=== PATIENT | female | born 1960 | race Caucasian/White ===

== ENCOUNTER 2023-12-22 14:56 | Emergency (ER) | payer MEDICAID, SELFPAY ==
[2023-12-22 15:21] VITALS: BP 141/69; PULSE 70; RESP 18; TEMP 36.6; O2SAT 96
[2023-12-22 15:22] VITALS: BMI 44.1
--- NOTE | 2023-12-22 15:26 | EKG_ITS ---
[facility] Test Date: 2023-12-22 Pat Name: IHSAN NATARAJAN Department: Room: - Gender: Female Talent Acquisition Director: : 1960 Requested By: José Miguel Yuen (JULIO) Order Number: [id number] Reading MD: José Miguel Yuen (CLIENT DEVELOPMENT MANAGER) Measurements Intervals [place] Rate: 58 P: 27 NM: 187 QRS: -36 QRSD: 82 T: 24 QT: 423 QTc: 418 Interpretive Statements SINUS BRADYCARDIA MARKED LEFT AXIS DEVIATION [QRS AXIS < -30] LOW QRS VOLTAGE IN PRECORDIAL LEADS [QRS DEFLECTION < 1.0 mV IN CHEST LEADS] VOLTAGE CRITERIA FOR LVH [MEETS CRITERIA IN ONE OF: R(aVL), S(V1), R(V5), R(V5/V6)+S(V1)] POSSIBLE ANTERIOR MYOCARDIAL INFARCTION , PROBABLY OLD [30 ms Q WAVE IN V3/V4, OR R < 0.2 mV IN V4] Compared to ECG 12/14/2022 06:11:24 Low QRS voltage now present Myocardial infarct finding now present Sinus rhythm no longer present /store/S0/[id number]
--- NOTE | 2023-12-22 15:26 | XR_ITS ---
Examination: CT brain head without contrast. 2-D sagittal coronal reconstructions Date and time of exam:December 22, 2023 1556 hrs. Comparison December 14, 2022 Indications: Onset today focal neurologic deficit, right-sided body weakness, dizziness CTDI: vol (mGy):49.9 DLP: (mGycm):981 Technique: Multiple CT axial sections of the brain have been obtained, 5 mm slice thickness. Contrast has not been administered. 2-D sagittal, coronal reconstructions have been obtained Low dose protocols were performed. One or more of the following dose reduction techniques were used; automated exposure control, adjustment of the mA and/or KV according to patient size, use of iterative reconstruction technique. Findings: No significant ventricular enlargement. Intra-axial or extra-axial hemorrhage density is not seen. No mass effect or midline shift Basal cisterns are not remarkable. Fourth ventricle is midline. Cranial vault intact. Significant right maxillary sinusitis Impression: Negative for acute hemorrhage, mass effect or midline shift As clinically warranted, brain MRI follow-up would best assess for acute ischemic change
--- NOTE | 2023-12-22 15:26 | PD.EDRME ---
Rapid Medical Screening Exam RME Arrival date/time: 12/22/23 14:56 61-year-old female presents to the emergency department complains of dizziness patient reports having recent outpatient MRI Chief Complaint: General Adult/Misc Complain Vital signs: Vital Signs Temperature 97.8 F 12/22/23 15:21 Pulse Rate 70 12/22/23 15:21 Respiratory Rate 18 12/22/23 15:21 Blood Pressure 141/69 H 12/22/23 15:21 Pulse Oximetry (%) 96 12/22/23 15:21 Oxygen Delivery Method Room Air 12/22/23 15:21
[2023-12-22 16:13] LABS: Basophils # (Auto) 0.1 Thou/mm3 (0.0-0.2); Basophils % (Auto) 2 % (0-2.5); Eosinophils # (Auto) 0.2 Thou/mm3 (0.0-0.5); Eosinophils % (Auto) 3 % (0-10); Hematocrit 40.1 % (36.0-46.0); Hemoglobin 13.5 g/dL (12.0-16.0); Immature Granulocytes % (Auto) 0 % (0-0); Immature Granulocytes Auto 0.02 Thou/mm3 (0.00-0.00); Lymphocytes # (Auto) 1.8 Thou/mm3 (1.0-4.8); Lymphocytes % (Auto) 36 % (10-50); Mean Corpuscular HGB Conc 33.7 g/dl (31.0-37.0); Mean Corpuscular Hemoglobin 29.9 pg (25.0-35.0); Mean Corpuscular Volume 89 fL (80-100); Monocytes # (Auto) 0.3 Thou/mm3 (0.0-0.8); Monocytes % (Auto) 7 % (0-12); Neutrophils # (Auto) 2.6 Thou/mm3 (1.8-7.7); Neutrophils % (Auto) 52 % (37-80); Nucleated Red Blood Cell % 0 /100 WBC (0); Platelet Count 234 Thou/mm3 (140-440); RDW Standard Deviation 39.7 fL (36.4-46.3); Red Blood Count 4.51 Miln/mm3 (4.00-5.20); White Blood Count 4.9 Thou/mm3 (3.6-11.0)
[2023-12-22 16:26] LABS: B-Type Natriuretic Peptide < 20 pg/mL (0-100)
[2023-12-22 16:27] LABS: Alanine Aminotransferase 71 U/L (10-49); Albumin, Serum 4.5 gm/dL (3.4-4.8); Albumin/Globulin Ratio 1.7 (1.2-2.2); Alkaline Phosphatase 113 U/L (46-116); Anion Gap 4 (7-16); Aspartate Amino Transferase 52 U/L (0-34); BUN/Creatinine Ratio 19 Ratio (12-20); Bilirubin,Total 0.4 mg/dL (0.3-1.2); Blood Urea Nitrogen 13 mg/dL (9-23); Calcium 9.9 mg/dL (8.3-10.6); Calcium (Corrected) 9.9 mg/dL (8.5-10.1); Carbon Dioxide 28.1 mMol/L (20.0-31.0); Chloride 106 mMol/L (98-107); Creatinine (Component) 0.7 mg/dL (0.6-1.3); Estimated Creatinine Clearance 108.2 mL/min (>60); Globulin 2.7 gm/dL (2.3-3.5); Glucose 116 mg/dL (74-106); Osmolality,Calculated 276 (275-295); Potassium 3.7 mMol/L (3.4-5.1); Sodium 138 mMol/L (136-145); Total Protein 7.2 gm/dL (5.7-8.2); Troponin I < 0.002 ng/mL (0.0-0.045); eGFR > 60 See Note
[2023-12-22 18:34] VITALS: BP 144/80; PULSE 56; RESP 17; TEMP 36.7; O2SAT 97
[2023-12-22 18:45] LABS: Collection Type, Urine Clean Catch; RBC,Urine 0 /hpf (0-3)
[2023-12-22 18:57] LABS: Amphetamine/Methamp Scrn,U Negative (Negative); Barbiturate Screen,Urine Negative (Negative); Benzodiazepines Screen,Urine Negative (Negative); Benzoylecgonine Screen, Ur Negative (Negative); Fentanyl Screen,Urine Negative (Negative); Opiate Screen,Urine Negative (Negative); THC Screen,Urine Negative (Negative)
[2023-12-22 18:58] LABS: Bacteria,Urine 1+; Bilirubin,Urine Negative (Negative); Blood,Urine Negative (Negative); Clarity,Urine Turbid (Clear/Hazy); Color,Urine Yellow (Lt Yel-Yel); Glucose, Urine Negative (Negative); Ketones,Urine Negative (Negative); Leukocyte Esterase,Urine Positive (Negative); Nitrite,Urine Negative (Negative); Protein,Urine Trace (Neg - Trace); Specific Gravity,Urine 1.026 (1.001-1.035); Squamous Epithelial Cell,Urine 2 /hpf (0-5); WBC,Urine 2 /hpf (0-5)
[2023-12-22 19:25] VITALS: BP 146/78; PULSE 65; RESP 16; TEMP 36.6; O2SAT 100
--- NOTE | 2023-12-22 19:38 | EDNOTE_ITS ---
ED General RME/HPI General Chief complaint: General Adult/Misc Complain Stated complaint: RIGHT SIDED WEAKNESS Time Seen by Provider: 12/22/23 18:39 Arrival date/time: 12/22/23 14:56 This is a 63-year-old female that comes in with complaints of dizziness that started prior to arrival. Patient states that recently she has been having some balance issues to her right hip and right knee. Patient being worked up by her primary doctor for neuropathy. Patient states that she has had a little bit of a runny nose and a sore throat recently but no fever no chills. Patient reports a history of high blood pressure, connective tissue disease, Sjogren's disease. Patient has a follow-up appointment with her primary provider next week. Patient denies any focal deficits, slurred speech syncope. RME / HPI RME / HPI narrative: 12/22/23 14:56 61-year-old female presents to the emergency department complains of dizziness patient reports having recent outpatient MRI Related Data Previous Rx's ?Medication ?Instructions ?Recorded Hydrocodone/Acetaminophen * (NORCO 1 tab PO Q6H PRN pain #10 tabs 11/20/16 5/325 *) ibuprofen 600 mg tablet 600 mg PO Q6HR PRN PAIN #25 tabs 11/20/16 methocarbamol 750 mg tablet 750 mg PO QID #30 tabs 11/02/17 (Robaxin-750) prednisone 50 mg tablet 50 mg PO QDAY #7 tabs 11/02/17 Allergies Allergy/AdvReac Type Severity Reaction Status Date / Time hydrocodone Allergy Severe NAUSEOUS, Verified 12/14/22 06:27 VOMITING meperidine Allergy Severe Rash Verified 12/14/22 06:27 Penicillins Allergy Severe Rash Verified 12/14/22 06:27 gemfibrozil Allergy Intermediate RASH Verified 12/14/22 06:27 hydrochlorothiazide AdvReac Mild Dizziness Verified 12/22/23 15:15 Review of Systems Review of Systems Systems Reviewed: All systems reviewed, normal except as documented Past Medical History Past Medical History MUSCULOSKELETAL: Positive Degenerative Disk Disease Social History SMOKING STATUS: Never smoker SECOND HAND EXPOSURE: No ED Exam General General appearance: Present alert and in no apparent distress Head Head exam: Present atraumatic Eye Eye exam: Present normal appearance, PERRL and EOMI ENT ENT exam: Present normal exam, normal oropharynx and mucous membranes moist (bilateral ears have cerumen impaction ) Neck Neck exam: Present normal inspection, full ROM and trachea midline Chest Chest inspection: Present normal inspection and symmetric chest wall rise Respiratory Respiratory exam: Present normal lung sounds bilaterally Cardiovascular Cardiovascular exam: Present regular rate, normal rhythm and normal heart sounds Abdominal Exam Abdominal exam: Present soft Extremities Exam Extremities exam: Present normal inspection and full ROM Back Exam Back exam: Present normal inspection and full ROM Neurological Exam Neurological exam: Present alert, oriented X3 and CN II-XII intact Psychiatric Psychiatric exam: Present normal affect and normal mood Skin Skin exam: Present warm, dry, intact and normal color Course Quality Measures none Orders Category Date Time Status EKG (ED ONLY) *Do not use* NOW Care 12/22/23 15:[address] head/brain wo con Stat Exams 12/22/23 15:26 Completed EKG (ED Only) Stat Exams 12/22/23 15:26 Draft B-Type Natriuretic Peptide Stat Lab 12/22/23 15:42 Completed CBC Stat Lab 12/22/23 15:42 Completed Comprehensive Metabolic Panel Stat Lab 12/22/23 15:42 Completed Drug Screen,Urine Stat Lab 12/22/23 18:19 Completed Troponin I Stat Lab 12/22/23 15:42 Completed Urinalysis Stat Lab 12/22/23 18:19 Completed Vital Signs Vital signs: Vital Signs Temperature 97.8 F 12/22/23 15:21 Pulse Rate 70 12/22/23 15:21 Respiratory Rate 18 12/22/23 15:21 Blood Pressure 141/69 H 12/22/23 15:21 Pulse Oximetry (%) 96 12/22/23 15:21 Oxygen Delivery Method Room Air 12/22/23 15:21 Procedures -ED EKG Interpretation #1: Date of EK12/22/23 Time of EK:35 Rate: 58 Interpretation: Interpreted by me (SINU BRADYCARDIA WTH LEFT AXIS DEVIATION ) EKG Impression: No ectopy, Normal QRS and Normal intervals MDM Patient data External records reviewed:: [facility] previous records Clinical information provided by:: patient Social determinants that could affect healthcare access:: none Patient has the following chronic illnesses:: see note How is presenting disease/condition affected by chronic disease/condition?: u neffected by Evaluation data The following diagnostics were reviewed and interpreted by me:: lab results, radiology exam(s) and EKG tracing(s) Lab and/or radiology exams considered but not ordered:: none Interpretation Summary: see note Medications Medications considered but not ordered:: none Medication administrations:: none Consultations Consultation(s) initiated? (list below): No Diagnosis Differential Diagnosis ED Complaint MDM: stroke, mi, vertigo Most likely diagnosis given after review of the tests above:: dizziness Admission Indicated Admission indicated?: not indicated Explain why admission is indicated or not indicated:: not needed Admission Request Was there a request for admission?: No Disposition Plan Disposition Plan: Discharge Discharge Attestation Discharge Attestation: The patient and all family members were given an opportunity to ask questions and understood the discharge instructions. Discharge instructions specifically effects, indications for sooner follow up or return to the emergency department, and the expected course of current diagnosis. Patient condition: Stable Medical Decision Making MDM Narrative MDM Narrative: Labs unremarkable. Patient has a lot of ear wax in bilateral ears. Pt has sinus pressure to bilateral maxary sinuses. Pt told she can use debrox drops top bilateral ears. Pt no longer dizzy and feels comfortable going home. Pt told to follow up with primary provider in 1-[address] HEAD: Findings: No significant ventricular enlargement. Intra-axial or extra-axial hemorrhage density is not seen. No mass effect or midline shift Basal cisterns are not remarkable. Fourth ventricle is midline. Cranial vault intact. Significant right maxillary sinusitis Impression: Negative for acute hemorrhage, mass effect or midline shift As clinically warranted, brain MRI follow-up would best assess for acute ischemic change Differential Diagnosis Differential Diagnosis: stroke, mi, vertigo Lab Data 12/22/23 15:42 12/22/23 15:42 Labs: Lab Results 12/22/23 12/22/23 Range/Units 15:42 18:19 WBC 4.9 (3.6-11.0) Thou/mm3 RBC 4.51 (4.00-5.20) Miln/mm3 Hgb 13.5 (12.0-16.0) g/dL Hct 40.1 (36.0-46.0) % MCV 89 (80-100) fL MCH 29.9 (25.0-35.0) pg MCHC 33.7 (31.0-37.0) g/dl RDW Std Deviation 39.7 (36.4-46.3) fL Plt Count 234 (140-440) Thou/mm3 Neut % (Auto) 52 (37-80) % Lymph % (Auto) 36 (10-50) % [place] % (Auto) 7 (0-12) % Eos % (Auto) 3 (0-10) % Baso % (Auto) 2 (0-2.5) % Neut # (Auto) 2.6 (1.8-7.7) Thou/mm3 Lymph # (Auto) 1.8 (1.0-4.8) Thou/mm3 [place] # (Auto) 0.3 (0.0-0.8) Thou/mm3 Eos # (Auto) 0.2 (0.0-0.5) Thou/mm3 Baso # (Auto) 0.1 (0.0-0.2) Thou/mm3 Immature Gran # (Auto) 0.02 H (0.00-0.00) Thou/mm3 Absolute Nucleated RBC 0.00 (0.00-0.00) Thou/mm3 Immature Gran % 0 (0-0) % Nucleated RBC % 0 (0) /100 WBC Sodium 138 (136-145) mMol/L Potassium 3.7 (3.4-5.1) mMol/L Chloride 106 (98-107) mMol/L Carbon Dioxide 28.1 (20.0-31.0) mMol/L Anion Gap 4 L (7-16) BUN 13 (9-23) mg/dL Creatinine 0.7 (0.6-1.3) mg/dL Estim Creat Clear Calc 108.2 (>60) mL/min eGFR > 60 (60 - ) See Note BUN/Creatinine Ratio 19 (12-20) Ratio Glucose 116 H (74-106) mg/dL Calculated Osmolality 276 (275-295) Calcium 9.9 (8.3-10.6) mg/dL Corrected Calcium 9.9 (8.5-10.1) mg/dL Total Bilirubin 0.4 (0.3-1.2) mg/dL AST 52 H (0-34) U/L ALT 71 H (10-49) U/L Alkaline Phosphatase 113 (46-116) U/L Troponin I < 0.002 (0.0-0.045) ng/mL B-Natriuretic Peptide < 20 (0-100) pg/mL Total Protein 7.2 (5.7-8.2) gm/dL Albumin 4.5 (3.4-4.8) gm/dL Globulin 2.7 (2.3-3.5) gm/dL Albumin/Globulin Ratio 1.7 (1.2-2.2) Ur Collection Type Clean Catch Urine Color Yellow (Lt Yel-Yel) Urine Clarity Turbid A (Clear/Hazy) Urine pH 6.0 (5.0-7.0) Ur Specific [place] 1.026 (1.001-1.035) Urine Protein Trace (Neg - Trace) Urine Glucose (UA) Negative (Negative) Urine Ketones Negative (Negative) Urine Blood Negative (Negative) Urine Nitrite Negative (Negative) Urine Bilirubin Negative (Negative) Urine Urobilinogen (Auto) 2.0 (0.0-1.0) mg/dL Ur Leukocyte Esterase Positive (Negative) Urine RBC 0 (0-3) /hpf Urine WBC 2 (0-5) /hpf Ur Squamous Epith Cells 2 (0-5) /hpf Urine Bacteria 1+ A (None) Urine Opiates Screen Negative (Negative) Urine Fentanyl Screen Negative (Negative) Ur Barbiturates Screen Negative (Negative) U Amphetamin/Meth Scrn Negative (Negative) U Benzodiazepines Scrn Negative (Negative) U Cocaine Metab Screen Negative (Negative) U Marijuana (THC) Screen Negative (Negative) Discharge Plan Plan Patient Disposition: HOME (Self Care) Patient condition on transfer: Stable Prescriptions/Referrals Prescriptions/Med Rec: No Action ibuprofen 600 MG tablet 600 mg PO Q6HR PRN (Reason: PAIN) Qty: 25 0RF Hydrocodone/Acetaminophen * (NORCO 5/325 *) 1 TAB tablet 1 tab PO Q6H PRN (Reason: pain) Qty: 10 0RF methocarbamol [Robaxin-750] 750 mg tablet 750 mg PO QID Qty: 30 0RF prednisone 50 mg tablet 50 mg PO QDAY Qty: 7 0RF Referrals: Stephy Lau MD [Primary Care Provider] - In 1 week Problem List Clinical Impression: Elevated liver enzymes, Dizziness, Sinusitis Patient/Caregiver Discharge Instructions Discharge Activity: activity as tolerated Education Materials: Dizziness Fainting Poss Causes, ED Sinusitis (No Antibiotics) Additional Instructions: Keep scheduled appointment with primary provider. Come back to the emergency room if symptoms change or worsen. May use Debrox drops for bilateral ears Print Language: Georgian Stand Alone Forms: Patrizia Award Info., Patient Portal Info Letter PA/LAST IRONER Supervising Physician PA/LAST IRONER Supervising Physician: LUIS ALFREDO
[2023-12-22 20:36] VITALS: BP 137/79; PULSE 82; RESP 16; TEMP 36.8; O2SAT 98
== END 2023-12-22 20:37 | disposition home or self-care (01) ==
PROVIDERS: Nurse Practitioner Primary Care; Emergency Provider Emergency Medicine; PCP Internal Medicine
DX: R42 Dizziness and giddiness (principal); J32.0 Chronic maxillary sinusitis; R74.8 Abnormal levels of other serum enzymes; R00.1 Bradycardia, unspecified
CPT/HCPCS: 36415; 70450; 80053; 80307; 81001; 83880; 84484; 85025; 93005; 99284

== ENCOUNTER → 2024-05-21 | Outpatient (CLI) | payer OTHER, SELFPAY ==
--- NOTE | 2024-05-21 13:15 | XR_ITS ---
Examination: Screening digital mammography, bilateral Computer aided detection 3-D breast Tomosynthesis, bilateral Date and time of exam: May 21, 2024 1340 hours Compared to mammograms dating to January 07, 2018 Indication: Screening Technique: Nonmagnified MLO, CC views of the breasts to been obtained, reconstructed from 3-D Tomosynthesis images. R2 computer aided detection program utilized for evaluation of suspicious masses and/or abnormal calcifications. 3-D Tomosynthesis images obtained. Findings: Scattered areas of fibroglandular density Benign calcifications. No interval suspicious masses Impression: BI-RADS category II: Benign Findings. Recommend 1 year follow-up mammogram.
== END | disposition home or self-care (01) ==
LOC: CDIM 13:25
PROVIDERS: PCP Internal Medicine; Referring Provider Internal Medicine; Visit Provider Internal Medicine
DX: Z12.31 Encounter for screening mammogram for malignant neoplasm of breast (principal); R92.323 Mammographic fibroglandular density, bilateral breasts; R92.1 Mammographic calcification found on diagnostic imaging of breast
CPT/HCPCS: 77063; 77067

== ENCOUNTER 2024-07-22 02:02 | Emergency (ER) | payer OTHER, MEDICAID, SELFPAY ==
--- NOTE | 2024-07-22 02:07 | PD.EDURI ---
Upper Respiratory Inf. RME/HPI General Chief Complaint: Dental/Oral/Throat Stated Complaint: SORE THROAT Time Seen by Provider: 07/22/24 02:06 Arrival date/time: 07/22/24 02:02 RME / HPI RME / HPI Narrative: Dr. Huerta?s Main ED Evaluation: 63yo female with a history of HTN, HLD BIBA from home presents to the ED for a chief complaint of a sore throat x 2 days. Patient states when she falls asleep, she feels my throat closing , so she called 911 to come in for evaluation. Patient denies any cough, fever, chills, N/V/D, chest pain, shortness of breath, abdominal pain or any other associated symptoms. Patient does live alone. Related Data Previous Rx's ?Medication ?Instructions ?Recorded Hydrocodone/Acetaminophen * (NORCO 1 tab PO Q6H PRN pain #10 tabs 11/20/16 5/325 *) ibuprofen 600 mg tablet 600 mg PO Q6HR PRN PAIN #25 tabs 11/20/16 methocarbamol 750 mg tablet 750 mg PO QID #30 tabs 11/02/17 (Robaxin-750) prednisone 50 mg tablet 50 mg PO QDAY #7 tabs 11/02/17 Allergies Allergy/AdvReac Type Severity Reaction Status Date / Time hydrocodone Allergy Severe NAUSEOUS, Verified 12/14/22 06:27 VOMITING meperidine Allergy Severe Rash Verified 12/14/22 06:27 Penicillins Allergy Severe Rash Verified 12/14/22 06:27 gemfibrozil Allergy Intermediate RASH Verified 12/14/22 06:27 hydrochlorothiazide AdvReac Mild Dizziness Verified 12/22/23 15:15 Review of Systems Review of Systems Systems Reviewed: All systems reviewed, normal except as documented Past Medical History Past Medical History NEUROLOGIC: Positive Neurological Disorders (connective tissue disoder) CARDIAC: Positive Hypertension; Negative Congestive Heart Failure RESPIRATORY: Negative Chronic Obstructive Pulmonary Disease (COPD) GASTROINTESTINAL: Positive Obesity GENITOURINARY: Negative Renal Disease MUSCULOSKELETAL: Positive Degenerative Disk Disease ENDOCRINE: Negative Diabetes Mellitus Type 1 or Diabetes Mellitus Type 2 OTHER HISTORY: 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 APPEARANCE: The patient is alert awake oriented X-3 in no distress, lying down comfortably, does not look ill/toxic. Patient has good eye contact. Patient is cooperative. VITALS: All vitals were reviewed and the pulse ox is % on room air which is normal according to my interpretation. HEENT: Normocephalic, atraumatic. Pupils are equal and reactive. Oral mucosa is moist. Patent Nares NECK: Supple, nontender, no thyromegaly, no meningismus, no JVD CHEST: Symmetrical, atraumatic, and with equal expansion , Nontender on palpation no deformity and no crepitus. CARDIOVASCULAR: Heart regular rhythm no murmur or gallop rub or extra beats. LUNGS: Clear to auscultation bilaterally with symmetrical chest rise. No laboring tachypnea or wheezing. No intercostal subcostal retraction. No rales and no rhonchi. No stridor. ABDOMEN: Soft, flat, nontender to palpation, no guarding or rebound tenderness. There are no abnormal masses palpated. Active and normal bowel sounds. EXTREMITIES: Nontender. No edema. No cyanosis. Patient is able to move all 4 extremities well, with full ROM and good CSM. SKIN: Warm and dry, no jaundice or rashes noted. NEURO: Patient is [place] x 4, Cranial nerves II through XII grossly intact. There is no focal neurologic deficits noted. GCS is 15, PNS and CLOTHES DRIER REPAIRER appear grossly intact. PSYCHIATRIC: Patient is in normal mood and affect. Course Quality Measures none Orders Category Date Time Status Strep A Rapid Stat Lab 07/22/24 02:19 Completed MethylPREDNISolone.* [SoluMEDROL Inj] Med 07/22/24 02:08 Discontinued 125 mg IM X1 ONE Vital Signs Vital signs: Vital Signs Temperature 97.6 F 07/22/24 02:12 Pulse Rate 63 07/22/24 02:12 Respiratory Rate 18 07/22/24 02:12 Blood Pressure 114/78 07/22/24 02:12 Pulse Oximetry (%) 96 07/22/24 02:12 Oxygen Delivery Method Room Air 07/22/24 02:12 Upper Respiratory Infection MDM Narrative MDM Narrative:: Scribe Attestation: 07/22/24 - Maria Del Rosario Newsome am scribing for and in the presence of Dr. Huerta. Patient presents with sore throat. Vital signs and exam as above. Patient nonseptic nontoxic at this time. Concern for viral pharyngitis, strep throat. 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 Will provide patient with medication for symptom relief, and order strep swab. Strep swab negative. On reevaluation patient hemodynamically stable in no distress will discharge home close return precautions follow-up with primary care doctor Patient data External records reviewed:: [facility] previous records (Per chart review, patient was seen here on 12/22/23 for dizziness.) and EMS form Clinical information provided by:: patient Social determinants that could affect healthcare access:: none Patient has the following chronic illnesses:: HTN, HLD How is presenting disease/condition affected by chronic disease/condition?: uneffected by Evaluation data The following diagnostics were reviewed and interpreted by me:: lab results Lab and/or radiology exams considered but not ordered:: none Interpretation Summary: Strep swab negative. Medications / Prescriptions Medications or Prescriptions considered but not ordered:: none Medication administrations:: Medication Administration History Discontinued Medications Methylprednisolone Sodium Succinate (Methylprednisolone Sod Succ 62.5 Mg/Ml 2ml Vial) 125 mg IM X1 ONE Stop: 07/22/24 02:09 Last Admin: 07/22/24 02:28 Dose: 125 mg Documented By: GISELLA see above Consultations Consultation(s) initiated? (list below): No Diagnosis Upper Respiratory Differential Diagnosis: other (strep throat, COVID, viral syndrome, patient w/o stridor less likely RPA, SENIOR CHEMICAL ENGINEER, and Sha's) Most likely diagnosis given after review of the tests above:: see clinical impression below Admission Indicated Admission indicated?: not indicated Admission Request Was there a request for admission?: No Disposition Plan Disposition Plan: Discharge Discharge Attestation Discharge Attestation: The patient and all family members were given an opportunity to ask questions and understood the discharge instructions. Discharge instructions specifically effects, indications for sooner follow up or return to the emergency department, and the expected course of current diagnosis. Patient condition: Stable Discharge Plan Plan Patient Disposition: HOME (Self Care) Prescriptions/Referrals Prescriptions/Med Rec: No Action ibuprofen 600 MG tablet 600 mg PO Q6HR PRN (Reason: PAIN) Qty: 25 0RF Hydrocodone/Acetaminophen * (NORCO 5/325 *) 1 TAB tablet 1 tab PO Q6H PRN (Reason: pain) Qty: 10 0RF methocarbamol [Robaxin-750] 750 mg tablet 750 mg PO QID Qty: 30 0RF prednisone 50 mg tablet 50 mg PO QDAY Qty: 7 0RF Problem List Clinical Impression: Pharyngitis Patient/Caregiver Discharge Instructions Other Activity Instructions:: It important that you get humidifier to keep in the room to help you with your breathing at night, and also sleep on multiple pillows to help prevent recurrence of symptoms. Education Materials: Self-Care for Sore Throats Print Language: Maltese Stand Alone Forms: Patrizia Award Info., Patient Portal Info Letter
[2024-07-22 02:12] VITALS: BP 114/78; PULSE 63; RESP 18; TEMP 36.4; O2SAT 96; BMI 41.5
[2024-07-22 02:13] VITALS: BP 105/72; PULSE 63; RESP 18; TEMP 36.7; O2SAT 96
[2024-07-22 02:15] VITALS: PULSE 61; O2SAT 99; BMI 41.5
[2024-07-22] MEDS: MethylPREDNISolone SOD SUCC 62.5 MG/ML 2ML VIAL 125 MG IM (02:28)
[2024-07-22 03:19] LABS: Strep A Rapid Negative (Negative)
[2024-07-22 04:20] VITALS: BP 138/84; PULSE 62; RESP 18; TEMP 36.6; O2SAT 98
== END 2024-07-22 04:21 | disposition home or self-care (01) ==
PROVIDERS: Emergency Provider Emergency Medicine
DX: J02.9 Acute pharyngitis, unspecified (principal); E78.5 Hyperlipidemia, unspecified; I10 Essential (primary) hypertension
CPT/HCPCS: 87651; 96372; 99283; J2919

== ENCOUNTER 2024-08-01 01:18 | Emergency (ER) | payer OTHER, MEDICAID, SELFPAY ==
[2024-08-01 01:20] VITALS: BP 112/74; PULSE 88; RESP 16; TEMP 36.8; O2SAT 97; BMI 42.0
[2024-08-01 01:23] VITALS: PULSE 88; RESP 16; O2SAT 96
[2024-08-01 03:01] VITALS: BP 104/71; PULSE 77; RESP 18; TEMP 36.8; O2SAT 97
--- NOTE | 2024-08-01 03:14 | EKG_ITS ---
[facility] Test Date: 2024-08-01 Pat Name: IHSAN NATARAJNA Department: Room: - Gender: Female Edge Burnisher: : 1960 Requested By: Torres Chavarria Order Number: [id number] Reading MD: Torres Chavarria Measurements Intervals [place] Rate: 63 P: 27 ND: 188 QRS: -25 QRSD: 84 T: 29 QT: 449 QTc: 461 Interpretive Statements SINUS RHYTHM BORDERLINE LEFT AXIS DEVIATION [QRS AXIS < -20] MODERATE VOLTAGE CRITERIA FOR LVH, CONSIDER NORMAL VARIANT [MEETS CRITERIA IN ONE OF: R(aVL), S(V1), R(V5), R(V5/V6)+S(V1)] Compared to ECG 12/22/2023 15:35:50 Sinus bradycardia no longer present Myocardial infarct finding no longer present /store/S0/[id number]/ecg/[id number]
--- NOTE | 2024-08-01 03:14 | XR_ITS ---
Examination: PA chest single view TECHNIQUE: Upright PA chest single view Date and time: August 01, 2024 0331 hours Comparison February 16, 2014 INDICATIONS: Chest pain shortness of breath today. FINDINGS: Normal heart size. Lungs are clear. Moderate osteopenia. IMPRESSION: No active disease.
--- NOTE | 2024-08-01 03:14 | PD.EDRME ---
Rapid Medical Screening Exam [facility] Arrival date/time: 08/01/24 01:18 63F with history of Sjogren's presents to ED with several hours of SOB and chest tightness. Patient denies URI symptoms. Chief Complaint: Shortness of Breath/Dyspnea Vital signs: Vital Signs Temperature 98.2 F 08/01/24 01:20 Pulse Rate 88 08/01/24 01:20 Respiratory Rate 16 08/01/24 01:20 Blood Pressure 112/74 08/01/24 01:20 Pulse Oximetry (%) 97 08/01/24 01:20 Oxygen Delivery Method Room Air 08/01/24 01:20
[2024-08-01 03:40] LABS: Basophils # (Auto) 0.1 Thou/mm3 (0.0-0.2); Basophils % (Auto) 2 % (0-2.5); Eosinophils # (Auto) 0.1 Thou/mm3 (0.0-0.5); Eosinophils % (Auto) 2 % (0-10); Hematocrit 39.2 % (36.0-46.0); Hemoglobin 13.4 g/dL (12.0-16.0); Immature Granulocytes % (Auto) 1 % (0-0); Immature Granulocytes Auto 0.04 Thou/mm3 (0.00-0.00); Lymphocytes # (Auto) 2.8 Thou/mm3 (1.0-4.8); Lymphocytes % (Auto) 34 % (10-50); Mean Corpuscular HGB Conc 34.2 g/dl (31.0-37.0); Mean Corpuscular Hemoglobin 30.1 pg (25.0-35.0); Mean Corpuscular Volume 88 fL (80-100); Monocytes # (Auto) 0.7 Thou/mm3 (0.0-0.8); Monocytes % (Auto) 9 % (0-12); Neutrophils # (Auto) 4.4 Thou/mm3 (1.8-7.7); Neutrophils % (Auto) 54 % (37-80); Nucleated Red Blood Cell % 0 /100 WBC (0); Platelet Count 227 Thou/mm3 (140-440); RDW Standard Deviation 42.3 fL (36.4-46.3); Red Blood Count 4.45 Miln/mm3 (4.00-5.20); White Blood Count 8.3 Thou/mm3 (3.6-11.0)
[2024-08-01 03:59] LABS: B-Type Natriuretic Peptide < 20 pg/mL (0-100)
[2024-08-01 04:01] LABS: Alanine Aminotransferase 55 U/L (10-49); Albumin, Serum 4.5 gm/dL (3.4-4.8); Albumin/Globulin Ratio 2.1 (1.2-2.2); Alkaline Phosphatase 96 U/L (46-116); Anion Gap 11 (7-16); Aspartate Amino Transferase 32 U/L (0-34); BUN/Creatinine Ratio 18 Ratio (12-20); Bilirubin,Total 0.5 mg/dL (0.3-1.2); Blood Urea Nitrogen 14 mg/dL (9-23); Calcium 9.6 mg/dL (8.3-10.6); Calcium (Corrected) 9.6 mg/dL (8.5-10.1); Carbon Dioxide 23.9 mMol/L (20.0-31.0); Chloride 103 mMol/L (98-107); Creatinine (Component) 0.8 mg/dL (0.6-1.3); Estimated Creatinine Clearance 92.2 mL/min (>60); Globulin 2.1 gm/dL (2.3-3.5); Glucose 97 mg/dL (74-106); Osmolality,Calculated 276 (275-295); Potassium 3.7 mMol/L (3.4-5.1); Sodium 138 mMol/L (136-145); Total Protein 6.6 gm/dL (5.7-8.2); Troponin I < 0.002 ng/mL (0.0-0.045); eGFR > 60 See Note
[2024-08-01 06:13] VITALS: BP 122/75; PULSE 63; RESP 17; TEMP 36.4; O2SAT 99
[2024-08-01 07:02] LABS: Troponin I < 0.002 ng/mL (0.0-0.045)
--- NOTE | 2024-08-06 08:44 | EDNOTE_ITS ---
ED Chest Pain RME/HPI General Chief Complaint: Shortness of Breath/Dyspnea Stated Complaint: SOB Time Seen by Provider: 08/01/24 07:56 Source: patient Arrival date/time: 08/01/24 01:18 63-year-old female with a history of sjorgens presents to the emergency room with a chief complaint of shortness of breath chest pain x 3 hours Mode of arrival: ambulatory Limitations: no limitations RME / HPI RME / HPI narrative: 08/01/24 01:18 63F with history of Sjogren's presents to ED with several hours of SOB and chest tightness. Patient denies URI symptoms. Related Data Previous Rx's ?Medication ?Instructions ?Recorded Hydrocodone/Acetaminophen * (NORCO 1 tab PO Q6H PRN pa in #10 tabs 11/20/16 5/325 *) ibuprofen 600 mg tablet 600 mg PO Q6HR PRN PAIN #25 tabs 11/20/16 methocarbamol 750 mg tablet 750 mg PO QID #30 tabs (Robaxin-750) prednisone 50 mg tablet 50 mg PO QDAY #7 tabs Allergies Allergy/AdvReac Type Severity Reaction Status Date / Time hydrocodone Allergy Severe NAUSEOUS, Verified 12/14/22 06:27 VOMITING meperidine Allergy Severe Rash Verified 12/14/22 06:27 Penicillins Allergy Severe Rash Verified 12/14/22 06:27 gemfibrozil Allergy Intermediate RASH Verified 12/14/22 06:27 hydrochlorothiazide AdvReac Mild Dizziness Verified 12/22/23 15:15 Review of Systems Review of Systems Systems Reviewed: All systems reviewed, normal except as documented Constitutional Constitutional: Reports system reviewed and no additional complaints, except as documented, Denies fatigue, Denies fever(s), Denies headache(s) and Denies weakness Eyes Eyes: Reports system reviewed and no additional complaints, except as documented, Denies blurry vision and Denies change in vision ENT Ears, Nose, Mouth, and Throat: Reports system reviewed and no additional complaints, except as documented, Denies otalgia, Denies headache(s), Denies nasal congestion, Denies throat swelling and Denies vertigo Cardiovascular Cardiovascular: Reports system reviewed and no additional complaints, except as documented, Reports chest pain, Reports dyspnea and Denies dyspnea on exertion Respiratory Respiratory: Reports system reviewed and no additional complaints, except as documented, Denies chest congestion, Denies cough, Reports dyspnea, Denies dyspnea on exertion and Denies wheezing Gastrointestinal Gastrointestinal: Reports system reviewed and no additional complaints, except as documented, Denies abdominal pain, Denies cramping, Denies nausea and Denies vomiting Genitourinary Genitourinary: Reports system reviewed and no additional complaints, except as documented Musculoskeletal Musculoskeletal: Reports system reviewed and no additional complaints, except as documented and Denies back pain Integumentary/Breasts Skin/Breast: Reports system reviewed and no additional complaints, except as documented and Denies wounds Neurologic Neurologic: Reports system reviewed and no additional complaints, except as documented, Denies confusion, Denies headache(s), Denies lack of coordination, Denies vertigo and Denies weakness Psychiatric Psychiatric: Reports system reviewed and no additional complaints, except as documented, Denies anxiety, Denies confusion, Denies depression, Denies paranoia, Denies suicidal ideation and Denies tactile hallucinations Endocrine Endocrine: Reports system reviewed and no additional complaints, except as documented and Denies fatigue Hematologic/Lymphatic Hematologic/Lymphatic: Reports system reviewed and no additional complaints, except as documented and Denies lymphadenopathy Allergic/Immunologic Allergic/Immunologic: Reports system reviewed and no additional complaints, except as documented, Denies throat swelling, Denies urticaria and Denies wheezing Past Medical History Past Medical History NEUROLOGIC: Positive Neurological Disorders (connective tissue disoder) CARDIAC: Positive Hypertension; Negative Congestive Heart Failure RESPIRATORY: Negative Chronic Obstructive Pulmonary Disease (COPD) GASTROINTESTINAL: Positive Obesity GENITOURINARY: Negative Renal Disease MUSCULOSKELETAL: Positive Degenerative Disk Disease ENDOCRINE: Negative Diabetes Mellitus Type 1 or Diabetes Mellitus Type 2 OTHER HISTORY: 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), Chicken Pox, Measles and Mumps Surgical History SURGICAL: Positive Eye Surgery, Tonsillectomy and Adenoidectomy Social History SMOKING STATUS: Never smoker SECOND HAND EXPOSURE: No ED Exam General Limitations: Present no limitations General appearance: Present alert and in no apparent distress Head Head exam: Present atraumatic Eye Eye exam: Present normal appearance, PERRL and EOMI ENT ENT exam: Present normal exam, normal oropharynx and mucous membranes moist Neck Neck exam: Present normal inspection, full ROM and trachea midline Chest Chest inspection: Present normal inspection and symmetric chest wall rise Respiratory Respiratory exam: Present normal lung sounds bilaterally; Absent respiratory distress, wheezes, stridor, accessory muscle use or prolonged expiratory phase Cardiovascular Cardiovascular exam: Present regular rate, normal rhythm and normal heart so unds; Absent bradycardia, tachycardia or irregular rhythm Abdominal Exam Abdominal exam: Present soft and normal bowel sounds Extremities Exam Extremities exam: Present normal inspection and full ROM Back Exam Back exam: Present normal inspection and full ROM Neurological Exam Neurological exam: Present alert, oriented X3 and CN II-XII intact Psychiatric Psychiatric exam: Present normal affect and normal mood Skin Skin exam: Present warm, dry, intact and normal color Course Quality Measures none Orders Category Date Time Status EKG (ED ONLY) *Do not use* NOW Care 08/01/24 03:14 Completed EKG (ED Only) Stat Exams 08/01/24 03:14 Draft XR chest 1V portable Stat Exams 08/01/24 03:14 Completed B-Type Natriuretic Peptide Stat Lab 08/01/24 03:22 Completed CBC Stat Lab 08/01/24 03:22 Completed Comprehensive Metabolic Panel Stat Lab 08/01/24 03:22 Completed Troponin I Stat Lab 08/01/24 03:22 Completed Troponin I Stat Lab 08/01/24 06:36 Completed Vital Signs Vital signs: Vital Signs Temperature 98.2 F 08/01/24 01:20 Pulse Rate 88 08/01/24 01:20 Respiratory Rate 16 08/01/24 01:20 Blood Pressure 112/74 08/01/24 01:20 Pulse Oximetry (%) 97 08/01/24 01:20 Oxygen Delivery Method Room Air 08/01/24 01:20 O2 saturation 97% within normal limits PROCEDURES: EKG Interpretation #1: Date of EK08/06/24 Rate: 63 Interpretation: Reviewed by me EKG Impression: Normal sinus rhythm Chest Pain MDM Narrative MDM Narrative:: 57-year-old male with no known medical history presents to the emergency room with a chief complaint of a sore throat x 2 days Patient is hemodynamically stable and in no apparent distress Physical examination shows clear bilateral lung sounds with patient has a strong and regular rhythm S1 and S2 noted no murmurs there is no abnormal breath sounds EKG was completed and shows normal sinus rhythm at [address] deviation CBC CMP and troponin were all within normal limits Chest x-ray was negative for any acute findings Patient was discharged and educated to follow-up with primary care provider in the next 24 to 48 hours and return to the emergency room for any evidence of wor sening signs or symptoms Patient data External records reviewed:: [facility] previous records Clinical information provided by:: patient Social determinants that could affect healthcare access:: none Patient has the following chronic illnesses:: No chronic illness How is presenting disease/condition affected by chronic disease/condition?: no chronic disease Evaluation data The following diagnostics were reviewed and interpreted by me:: lab results and radiology exam(s) Lab and/or radiology exams considered but not ordered:: Labs and radiology exams considered and ordered Interpretation Summary: Chest [id number]: Normal heart size. Lungs are clear. Moderate osteopenia. IMPRESSION: No active disease. Medications / Prescriptions Medications or Prescriptions considered but not ordered:: Medication given Medication administrations:: Medication given Consultations Consultation(s) initiated? (list below): No Diagnosis Chest Pain Differential Diagnosis: stable angina, atypical chest pain, st elevation myocardial infarction and chest pain Most likely diagnosis given after review of the tests above:: Chest pain Admission Indicated Admission indicated?: not indicated Admission Request Was there a request for admission?: No Disposition Plan Disposition Plan: Discharge Discharge Attestation Discharge Attestation: The patient and all family members were given an opportunity to ask questions and understood the discharge instructions. Discharge instructions specifically effects, indications for sooner follow up or return to the emergency department, and the expected course of current diagnosis. Patient condition: Stable Discharge Plan Plan Patient Disposition: HOME (Self Care) Discharge Disposition comment: Stable Prescriptions/Referrals Prescriptions/Med Rec: No Action ibuprofen 600 MG tablet 600 mg PO Q6HR PRN (Reason: PAIN) Qty: 25 0RF Hydrocodone/Acetaminophen * (NORCO 5/325 *) 1 TAB tablet 1 tab PO Q6H PRN (Reason: pain) Qty: 10 0RF methocarbamol [Robaxin-750] 750 mg tablet 750 mg PO QID Qty: 30 0RF prednisone 50 mg tablet 50 mg PO QDAY Qty: 7 0RF Referrals: No Primary/Family,Physician [Primary Care Provider] - In 1 week Problem List Clinical Impression: Chest pain Patient/Caregiver Discharge Instructions Education Materials: ED Chest Pain, Noncardiac Additional Instructions: Please follow-up with your primary care provider in the next 24 to 48 hours Your cardiac examination was within normal limits. For any evidence of worsening signs or symptoms return to the emergency room immediately Print Language: Albanian Stand Alone Forms: Patrizia Award Info., Patient Portal Info Letter ANTHONY/BANKING ANALYST Supervising Physician PA/BANKING ANALYST Supervising Physician: Dr. Susan Whitman
== END 2024-08-01 08:10 | disposition home or self-care (01) ==
PROVIDERS: Physician Assistant; Emergency Provider Emergency Medicine
DX: R07.9 Chest pain, unspecified (principal); R06.02 Shortness of breath; R94.31 Abnormal electrocardiogram [ECG] [EKG]
CPT/HCPCS: 36415; 71045; 80053; 83880; 84484; 85025; 99283